=== PATIENT | female | born 1965 | race Caucasian/White ===

== ENCOUNTER 2016-12-29 07:50 | Inpatient (IN) | payer BC ==
[~2016-12-29 07:50] MED LIST: MORPHINE SULFATE 15 MG TABLET.SA PO PRN; RINGER'S SOLUTION,LACTATED 1,000 ML IV PRN; ROPIVACAINE HCL/PF 100 MG, KETOROLAC TROMETHAMINE 30 MG, EPINEPHrine 0.2 MG in NORMAL S... IJ PRN; TRANEXAMIC ACID 1,000 MG in NORMAL SALINE 100 ML IV PRN; ceFAZolin SODIUM 1 GM VIAL IV PRN
[2016-12-29] MEDS ORDERED: RINGER'S SOLUTION,LACTATED 800 ML IV ONE (09:30)
[2016-12-29] MEDS ORDERED: RINGER'S SOLUTION,LACTATED 1,000 ML IV ONE ×2 (10:45→11:40)
[2016-12-29] MEDS ORDERED: MAG HYDROX/ALUMINUM HYD/SIMETH 30 ML UDC PO PRN (11:35)
[2016-12-29] MEDS ORDERED: PROMETHAZINE HCL 5 MG in DEXTROSE 5 % IN WATER 50 ML IV PRN ×2 (11:35)
[2016-12-29] MEDS ORDERED: MAGNESIUM HYDROXIDE 30 ML UDC PO PRN (11:35)
[2016-12-29] MEDS ORDERED: HYDROmorphone HCL 1 MG/ML DISP.SYRIN IV PRN (11:35)
[2016-12-29] MEDS ORDERED: ZOLPIDEM TARTRATE 5 MG TABLET PO PRN (11:35)
[2016-12-29] MEDS ORDERED: diphenhydrAMINE HCL 50 MG/ML VIAL IV PRN (11:35)
[2016-12-29] MEDS ORDERED: ACETAMINOPHEN 500 MG TABLET PO PRN (11:35)
--- NOTE | 2016-12-29 11:38 | OR ---
Operative Report - Dictated Report Narrative: Date: 12/29/2016 Preoperative diagnosis: Left Knee degenerative joint disease. Postoperative diagnosis: Left Knee degenerative joint disease. Procedure: Left Total knee arthroplasty. Surgeon: James Unger M.D. Camp Nurse: Familia Ramos PA-C Anesthesia: Spinal with regional block and local periarticular joint injection. Complications: None Specimens: Bone for disposal. Estimated blood loss: Minimal. Tourniquet time: 80 Minutes at 325 millimeters of mercury. Retained implants: Depuy Attune size 3 left lugged cemented posterior stabilized femoral component. Size 3 fixed-bearing cemented tibial platform. 3 by 8 millimeter posterior stabilized cross-linked tibial insert. 35 millimeter medialized patella button. Indications: Mrs. Naik is a 51-year-old female who has had long-standing left knee pain and arthrosis. This patient was followed in my clinic for period of time with significant complaints of left knee pain consistent with arthritic changes. She had failed conservative measures including, but not limited to, activity modification, passage of time, medications, and other conservative measures. Patient wished to proceed with surgical treatment. The risks, benefits, and alternatives were discussed in clinic. The risks of , blood clots, bleeding, infection, nerve/tendon blood vessel/ injury, malposition of components, intraoperative fracture, postoperative limited range of motion, persistent pain, failure of components, and need for additional procedures. Patient wished to proceed consent was obtained after answering all questions. Procedure: After marking the correct extremity on the floor, the patient was taken to the operating room. A timeout was performed. IV antibiotics consisting of Ancef were administered prior to the procedure. A regional followed by spinal anesthetic was induced by anesthesia, per my request, on the operative table with all bony prominences well-padded. Goodrich catheter was placed, and a bump was placed under the operative side buttock. SCDs and ROGELIO hose were utilized on the nonoperative leg. A well-padded tourniquet was applied to the operative thigh. The operative leg was then pre-scrubbed with alcohol prepped, and draped in a standard sterile fashion. After exsanguinating the extremity with an Esmarch bandage, the tourniquet was inflated. After marking out the anterior knee for standard incision centered over the patella, the skin was incised and dissected down to the joint retinaculum. The joint retinaculum was marked out as well as the horizontal axis of the patella, and a standard medial parapatellar arthrotomy was then made. The most proximal aspect of the quadriceps tendon and the patella tendon insertion were protected from release. A partial synovectomy was performed as well as a resection of the infrapatellar fat pad. The distal femoral fat pad proximal to the trochlea was also resected using cautery. The soft tissues were elevated off the medial aspect of the proximal tibia using a Oliveira elevator ensuring that we did not transect the medial collateral ligament. Upon initial evaluation range of motion was approximately 5 degrees to 120 degrees of flexion. There were signs of advanced arthrosis in the medial and patellofemoral joint spaces. There were large marginal osteophytes which were removed with a rongeur. The knee was hyperflexed and the patella was tucked laterally. Protecting the surrounding soft tissues with Homans, an entry drill was placed down the femoral canal using Whitesides line for guidance into the entry point. The intramedullary femoral alignment gray was utilized in order to cut the distal femur in 5 degrees of valgus resecting 10 millimeters of bone. Next the distal femur was sized to a size 3. A posterior referencing guide was utilized to place the distal femoral cutting block in 3 degrees of external rotation. This was pinned into place. The rotation was confirmed both visually and based on anatomic landmarks. The 4 in 1 cutting jig of the appropriate size was utilized in order to make all bony cuts. The angle wing was used to ensure no notching. Retractors were utilized in order to protect surrounding soft tissues. This cut did not result in any excessive notching. We then cut the box centered over the distal femur. This allowed for resection of the anterior and posterior cruciate ligaments. I then turned my attention to the preparation of the tibia. Using an extra medullary tibial alignment gary, 2 millimeters of bone was resected off the medial articular surface. This was made perpendicular to the mechanical axis of the joint with the alignment gary centered over the ankle mortise. The alignment gary was checked and was noted to be parallel to the mechanical axis, centered over the medial one third of the tibial tubercle, paralleling the anterior surface of the tibia. We then turned our attention to the remaining meniscus and soft tissues. These were removed while protecting the surrounding ligaments and soft tissues. The marginal osteophytes off the anterior, posterior, medial, lateral aspects of the femur and tibia were removed. The tibia was sized out to a size 3. Next the tibia was drilled and punched in an externally rotated position. Next the trial femur and a series of tibial inserts were utilized in order to allow for full extension and maximal flexion. It was found that a 8 millimeter insert gave the best range of motion and stability at multiple flexion points as well as at full extension there was less than 2 mm of gapping both medially and laterally. There is minimal anterior translation with the knee at 90 degrees of flexion and no signs of being able to dislocate the knee. The patella was then prepared. The initial thickness was 20 millimeters. This was reamed down to 11 millimeters parallel to the anterior surface of the patella. It was sized out to a size 35 medialized patella button. This was then drilled and trialed. Without any medial restraint the patella tracked appropriately and did not sublux or dislocate. At this point, it was felt these were the appropriate sized implants, and all trials were removed. The standard periarticular joint injection consisting of ropivacaine, Toradol, and epinephrine were injected into the periarticular joint tissues. The bony surfaces were thoroughly irrigated with a pulsatile- suction saline irrigation device. A bone plug from the prior resected anterior chamfer cut was placed into the drill hole at the distal femur. The bony surfaces were then dried in preparation for placement of the implants. The cement was vacuum mixed per the house mover helper's instructions. The cement was placed on the dry bony surfaces and posterior aspect of the implants. The implants were impacted into place, removing all extruded cement. At this point anesthesia administered tranexamic acid per protocol intravenously. The knee was placed in extension with axial loading with the trial insert while the cement cured. Once the cement cured, all remaining extruded cement was removed. The knee was placed through a range of motion with the trial insert to ensure appropriate range of motion and stability. Final range of motion was approximately 0 to 120 degrees. The knee was again thoroughly irrigated with pulsatile saline lavage. The final polyethylene insert was then impacted into place ensuring no retained soft tissues. The remaining periarticular joint injection was injected. A medium Hemovac drain was placed exiting superior laterally. The knee was then placed over a triangle and the arthrotomy was closed with interrupted #1 Vicryl after thoroughly irrigating the joint. The deep and subcutaneous tissues were closed with interrupted 0 and 3-0 Vicryl respectively. Skin was closed with a running subcutaneous 3-0 Monocryl and Prineo Dermabond dressing. 4 x 4's, Sof-Rol, and a full leg Cristiano wrap were applied. All sponge, needle, blade, and instrument counts were correct prior to closing the wounds. Postoperative condition: The patient was awoken and transferred to the postanesthesia care unit in stable condition. Plan is to be admitted to the inpatient medical/surgical floor postoperatively for 24 hours of IV antibiotics , physical therapy, occupational therapy, and medical comanagement. Patient will be weightbearing as tolerated with range of motion as tolerated. DVT prophylaxis will be with SCDs, ROGELIO hose, and pharmacological anticoagulation. Anticipated hospital stay is approximately 2-4 days.
--- NOTE | 2016-12-29 11:56 | OR ---
Anesthesia Procedure Note - Anesthesia Procedure Note Date of Service: 12/29/16 Narrative: Vital Signs - Last Taken Temp 36.8 C 12/29/16 11:45 Pulse 103 H 12/29/16 11:50 Resp 16 12/29/16 11:50 BP 109/56 12/29/16 11:45 Pulse Ox 99 12/29/16 11:50 O2 Oxygen Delivery Method Room Air 12/29/16 11:54 ANESTHESIA PROCEDURE NOTE Date of Procedure: 12/29/2016. Time of procedure: 929. Performed by: Renny Madsen CRNA Warp Clamper: None. Preprocedure diagnosis: Left total knee arthroplasty. Post procedure diagnosis: Same. Procedure: Left ultrasound guided femoral block for postoperative analgesia. Indications: The patient is a 51 -year-old female who is been consulted for left ultrasound-guided femoral block for postoperative analgesia. Findings: See below. Details of the procedure: The tissue over the intended target site was cleansed with ChloraPrep. 1 ml Lidocaine 1 % was infiltrated to the skin and subcutaneous tissue. Under sterile technique and ultrasound guidance a 21-gauge block needle was inserted anterior to the left femoral nerve . 30 mL's of 0.5% bupivacaine plus epinephrine 1 200,000 was injected after negative aspiration for blood. Spread of local anesthetic surrounding the femoral nerve was observed throughout the injection with ultrasound. The needle was removed intact. No complications were noted. The images were retained in the Hospital medical database . EBL: Minimal. Fluids: N/A. Specimen: N/A. Post procedure condition: The patient tolerated the procedure well. No complications were noted. Thank you for this consultation. Renny Madsen CRNA
[2016-12-29] MEDS ORDERED: HYDROmorphone HCL 2 MG/ML VIAL IV PRN (12:15)
[2016-12-29] MEDS ORDERED: HYDROmorphone HCL 2 MG/ML VIAL IV ONE (12:30)
[2016-12-29] MEDS: DEXTROSE 5%-LACTATED RINGERS 1,000 ML IV PRN ×2 (13:07→21:13)
[2016-12-29] MEDS: KETOROLAC TROMETHAMINE 15 MG/ML VIAL IV SCH ×2 (13:48→18:36)
[2016-12-29] MEDS: ceFAZolin SODIUM 1 GM in DEXTROSE 5 % IN WATER 100 ML IV SCH ×4 (16:14→21:06)
[2016-12-29] MEDS: MORPHINE SULFATE 15 MG TABLET.SA PO SCH (21:06)
[2016-12-29] MEDS: SENNOSIDES/DOCUSATE SODIUM 1 TAB TABLET PO SCH (21:06)
[2016-12-29] MEDS: oxyCODONE HCL/ACETAMINOPHEN 1 TAB TABLET PO PRN (21:15)
[2016-12-30] MEDS: KETOROLAC TROMETHAMINE 15 MG/ML VIAL IV SCH ×4 (00:20→18:50)
[2016-12-30] MEDS: ceFAZolin SODIUM 1 GM in DEXTROSE 5 % IN WATER 100 ML IV SCH ×2 (03:39)
[2016-12-30] MEDS: ONDANSETRON HCL/PF 2 MG/ML VIAL IV PRN ×3 (04:33→18:51)
[2016-12-30 06:25] LABS: Hematocrit 31.6 % (37.0-47.0); Hemoglobin 10.2 gm/dL (12.5-16.0); Mean Cell Volume 97.2 fl (78-100); Mean Corpuscular Hemoglobin 31.4 pg (27-31); Mean Corpuscular Hgb Conc 32.3 g/dl (32-36); Mean Platelet Volume 9.4 fl (6.0-9.5); Platelet Count 234 K/mm3 (150-450); Red Blood Count 3.25 M/mm3 (4.2-5.4); Red Cell Distribution Width 12.3 % (11.5-14.0); White Blood Count 8.2 K/mm3 (4.0-10.5)
[2016-12-30 06:38] LABS: Anion Gap 8.5 mmol/L (6.8-13.8); BUN/Creatinine Ratio 13.6 (9.0-21.6); Calcium * 8.4 mg/dL (7.9-10.9); Carbon Dioxide 31.4 mmol/L (24-32.6); Estimated Creat Clear 85.1; Potassium 3.9 mmol/L (3.4-4.6)
[2016-12-30] MEDS: MORPHINE SULFATE 15 MG TABLET.SA PO SCH ×2 (08:03→21:07)
[2016-12-30] MEDS: MULTIVITAMINS 1 CAP CAPSULE PO SCH (08:04)
[2016-12-30] MEDS: CALCIUM CARBONATE/VITAMIN D3 1 TAB TABLET PO SCH (08:04)
--- NOTE | 2016-12-30 08:13 | PN ---
Subjective - Date and Time Seen Date: 12/30/16 Time: 08:09 Subjective Narrative: No complaints. Pain controlled. No current nausea or vomiting. No lightheadedness, CP, or SOB. Objective Objective Narrative: Bandages C/D/I. N/V intact. Calf supple. 2+ dorsalis pedis pulse - Vitals Vitals: Last Vital Signs Temp 37.0 C 12/30/16 02:50 Pulse 90 12/30/16 02:50 Resp 16 12/30/16 02:50 BP 108/72 12/30/16 02:50 Pulse Ox 98 12/30/16 02:50 - Abnormal Lab Findings Abnormal Lab Findings: Abnormal Lab Results 12/30/16 12/30/16 Range/Units 06:21 06:21 RBC 3.25 L (4.2-5.4) M/mm3 Hgb 10.2 L (12.5-16.0) gm/dL Hct 31.6 L (37.0-47.0) % MCH 31.4 H (27-31) pg Random Glucose 126 H (70-110) mg/dL - Exam Constitutional: Present: Alert, Oriented x3, Cooperative, No distress Cauti Physician Documentation - Urinary Catheter Management Urethral (Goodrich) Date of Insertion: 12/29/16 Assessment/Plan - Problems/Diagnosis (1) Status post total left knee replacement Problem: Acute Narrative: PT, anticoagulation, pain control, patient will need wheeled walker for 6-8 weeks postop for ambulation (2) Acute blood loss anemia Problem: Acute Narrative: asymptomatic, recheck labs tomorrow am
[2016-12-30] MEDS: oxyCODONE HCL/ACETAMINOPHEN 1 TAB TABLET PO PRN ×2 (08:35→16:29)
[2016-12-30] MEDS: ENOXAPARIN SODIUM 40 MG/0.4 ML SYRG SC SCH (10:37)
[2016-12-30] MEDS: SENNOSIDES/DOCUSATE SODIUM 1 TAB TABLET PO SCH (21:07)
[2016-12-31] MEDS: ONDANSETRON HCL/PF 2 MG/ML VIAL IV PRN (00:50)
[2016-12-31] MEDS: KETOROLAC TROMETHAMINE 15 MG/ML VIAL IV SCH ×2 (00:50→06:59)
[2016-12-31] MEDS: oxyCODONE HCL/ACETAMINOPHEN 1 TAB TABLET PO PRN (04:40)
[2016-12-31 06:13] LABS: Hematocrit 30.1 % (37.0-47.0); Hemoglobin 10.1 gm/dL (12.5-16.0); Mean Cell Volume 94.4 fl (78-100); Mean Corpuscular Hemoglobin 31.7 pg (27-31); Mean Corpuscular Hgb Conc 33.6 g/dl (32-36); Mean Platelet Volume 9.3 fl (6.0-9.5); Platelet Count 238 K/mm3 (150-450); Red Blood Count 3.19 M/mm3 (4.2-5.4)
[2016-12-31 06:24] LABS: Anion Gap 10.7 mmol/L (6.8-13.8); BUN/Creatinine Ratio 10.7 (9.0-21.6); Calcium * 8.6 mg/dL (7.9-10.9); Potassium 3.7 mmol/L (3.4-4.6)
[2016-12-31] MEDS: MULTIVITAMINS 1 CAP CAPSULE PO SCH (09:53)
[2016-12-31] MEDS: CALCIUM CARBONATE/VITAMIN D3 1 TAB TABLET PO SCH (09:53)
[2016-12-31] MEDS: MORPHINE SULFATE 15 MG TABLET.SA PO SCH (09:53)
[2016-12-31] MEDS: ENOXAPARIN SODIUM 40 MG/0.4 ML SYRG SC SCH (09:54)
--- NOTE | 2016-12-31 09:55 | DS ---
(1) Status post total left knee replacement Problem: Acute (2) Acute blood loss anemia Problem: Acute Description of Stay: Mrs. Naik was admitted to the floor after undergoing left total knee arthroplasty. Tolerated this well. Was admitted to the floor postoperatively for 24 hours of IV antibiotics, pain control, medical comanagement, and occupational and physical therapy. OT and PT were consulted to assist with activities of daily living and ambulation. Was made weightbearing as tolerated with range of motion as tolerated. Pain was initially controlled with IV regimen. This was transitioned to oral once tolerating a by mouth intake. Was resumed on home diet and medications. Had a Goodrich catheter inserted and the operating room which was discontinued on postoperative day 1. A drain was placed intraoperatively into the knee which was discontinued on postoperative day 1. Lovenox SCD and ROGELIO hose were utilized for DVT prophylaxis. Vital signs remained stable to the hospital course. Serial labs were obtained which showed a final hemoglobin of 10.1 grams. BMP was reviewed and was stable. Physical examination throughout the hospital course showed an extremity that had sensation that was intact to light touch, palpable pulses, a benign wound, motor intact to the toes, ankle, and knee. Knee range of motion was approximately 5 degrees to 60 degrees. Once an oral pain regimen was tolerated and physical therapy goals were met, it was felt that they were stable for discharge to home. Instructions: Continue with weightbearing as tolerated and range of motion as tolerated. It is OK to shower on the wound if it is not draining. If you note any drainage or for comfort you can cover with dry gauze and tape. Change every 2-3 days as needed. Continue with physical therapy. Resume home diet. Report any fever over 101.5 Fahrenheit, uncontrolled pain, increased drainage, foul odor of drainage, new or increased calf pain or shortness of breath, or any other significant complaints. A 325mg dialy aspirin will be started after finishing anticoagulation if not allergic. Continue with ROGELIO hose on the operative extremity until instructed otherwise. No driving until instructed otherwise. Follow up in approximately 10-14 days. Procedures Performed: see notes below List Procedures: Left total knee arthroplasty Discharge Disposition: Home self care Disposition: Home self-care Condition: Good Discharge Activity: Activity as tolerated, Weight bearing Discharge Diet: General/regular food Referrals: Barney Neal MD [Staff Physician] - Additional Patient Instructions (free text): Follow-up in the office with Dr. Unger on 01/13/17@10:45am. Send PT orders to [facility] in [place], [place]. Prescriptions (Any new or edited meds): Enoxaparin Sodium [Lovenox] 40 mg SC Q24H #7 disp.syrin Morphine Sulfate [Ms Contin] 15 mg PO Q12H #20 tablet.sa oxyCODONE HCL/ACETAMINOPHEN [Percocet 5 MG/325 MG] 2 tab PO Q4H PRN #90 tablet PRN Reason: Moderate Pain Sennosides/Docusate Sodium [Senokot-S] 2 tab PO HS #30 tablet Complete Home Medications List: Complete Home Medication List: Calcium Carb/Vitamin D3/Vit K1 [Calcium + D Soft Chewable Tab] 1 each PO DAILY 12/29/16 Multivitamins [Multivitamin Nadine] 1 cap PO DAILY 12/29/16 Enoxaparin Sodium [Lovenox] 40 mg SC Q24H #7 disp.syrin 12/31/16 Morphine Sulfate [Ms Contin] 15 mg PO Q12H #20 tablet.sa 12/31/16 Sennosides/Docusate Sodium [Senokot-S] 2 tab PO HS #30 tablet 12/31/16 oxyCODONE HCL/ACETAMINOPHEN [Percocet 5 MG/325 MG] 2 tab PO Q4H PRN #90 tablet 12/31/16 Amb Orders for Discharge: PT Evaluation and Treatment Facility: [facility], Location: Rehabilitation Services
[2016-12-31 10:47] VITALS: BP 134/75
== END 2016-12-31 12:54 | disposition home or self-care (01) | DRG 470 ==
LOC: MS 07:50
PROVIDERS: ADMIT Orthopaedic Surgery; ATTEND Orthopaedic Surgery
PROC: 0SRD0J9 Replacement of Left Knee Joint with Synthetic Substitute, Cemented, Open Approach (ICD-10-PCS; principal; 2016-12-29 11:30)
DX: M17.12 Unilateral primary osteoarthritis, left knee (principal); D62 Acute posthemorrhagic anemia; E78.5 Hyperlipidemia, unspecified
CPT/HCPCS: 27447; 36415; 73560; 80048; 85027; 86850; 86900; 97110; 97116; 97161; 97166; 97530; 97535; J2405

== ENCOUNTER 2017-02-14 08:08 | Day surgery (SDC) | payer BC ==
[~2017-02-14 08:08] MED LIST changes: +HYDROmorphone HCL 2 MG TABLET PO PRN; +HYDROmorphone HCL 2 MG/ML VIAL IV PRN; -MORPHINE SULFATE 15 MG TABLET.SA PO PRN; -ROPIVACAINE HCL/PF 100 MG, KETOROLAC TROMETHAMINE 30 MG, EPINEPHrine 0.2 MG in NORMAL S... IJ PRN; +ROPIVACAINE HCL/PF 40 MG in NORMAL SALINE 16 ML IJ PRN; -TRANEXAMIC ACID 1,000 MG in NORMAL SALINE 100 ML IV PRN; -ceFAZolin SODIUM 1 GM VIAL IV PRN
[2017-02-14] MEDS ORDERED: SCOPOLAMINE HYDROBROMIDE 1.5 MG PATC TD ONE (08:31)
[2017-02-14] MEDS ORDERED: RINGER'S SOLUTION,LACTATED 1,000 ML IV ONE (08:35)
--- NOTE | 2017-02-14 09:05 | POSTOP NO ---
Date of Surgery: 02/14/17 Anesthesia: General Patient Tolerated the Procedure: Well Post Operative Diagnosis/Procedures: Post Operative Diagnosis: Left total knee arthrofibrosis Procedure Performed: Manipulation under anesthesia with intra-articular injection of local professional tutor: Familia Ramos PA-C Estimated Blood Loss: None Specimens: None Findings: Above
[2017-02-14] MEDS ORDERED: HYDROmorphone HCL 1 MG/ML DISP.SYRIN IV PRN (09:11)
[2017-02-14] MEDS ORDERED: NALOXONE HCL 0.4 MG/ML VIAL IV PRN (09:11)
[2017-02-14] MEDS ORDERED: PROMETHAZINE HCL 12.5 MG in DEXTROSE 5 % IN WATER 50 ML IV PRN ×2 (09:11)
[2017-02-14] MEDS ORDERED: diphenhydrAMINE HCL 50 MG/ML VIAL IV PRN (09:11)
[2017-02-14] MEDS ORDERED: HYDROmorphone HCL 1 MG/ML DISP.SYRIN IV ONE (09:12)
[2017-02-14 10:59] VITALS: BP 135/74
== END 2017-02-14 08:09 | disposition home or self-care (01) ==
LOC: AMB 08:08
PROVIDERS: ATTEND Orthopaedic Surgery
PROC: 3E0U3BZ Introduction of Anesthetic Agent into Joints, Percutaneous Approach (ICD-10-PCS; 2017-02-14)
PROC: 0SNDXZZ Release Left Knee Joint, External Approach (ICD-10-PCS; principal; 2017-02-14 09:00)
DX: M24.662 Ankylosis, left knee (principal); E78.5 Hyperlipidemia, unspecified; Z87.891 Personal history of nicotine dependence; Z68.30 Body mass index [BMI] 30.0-30.9, adult